=== PATIENT | male | born 1965 | race Caucasian/White ===

== ENCOUNTER 2019-05-15 09:47 | Emergency (ER) | payer OTHER ==
[~2019-05-15] VITALS: Ht 188 cm; Wt 105.0 kg
[2019-05-15 10:37] VITALS: BP 168/118
[2019-05-15] MEDS ORDERED: PEN G BENZ/PEN G PROCAINE CR 1.2 MMU/2 ML IM ONE (11:15)
[2019-05-15] MEDS ORDERED: ACETAMINOPHEN 325MG TABLET PO ONE (11:15)
== END 2019-05-15 12:12 | disposition home or self-care (01) ==
LOC: ER 09:59
DX: J02.9 Acute pharyngitis, unspecified (principal); J45.909 Unspecified asthma, uncomplicated; I10 Essential (primary) hypertension; E07.9 Disorder of thyroid, unspecified
CPT/HCPCS: 96372; 99283; J0558